=== PATIENT | male | born 1980 | race Caucasian/White ===

== ENCOUNTER 2018-10-23 03:53 | Emergency (ER) | payer MEDICAID, SELFPAY ==
[2018-10-23 03:55] VITALS: BP 134/82; PULSE 104; RESP 18; TEMP 36.2; O2SAT 99; BMI 26.3
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
--- NOTE | 2018-10-23 06:47 | ED.DEP ---
ED Disposition - Plan for ED Patient: Instructions: BACK PAIN (Acute or Chronic), CONTUSION, Upper Extremity, CONTUSION, Lower Extremity Referrals: Malika Haynes [Primary Care Provider] -
== END 2018-10-23 06:58 | disposition home or self-care (01) ==
PROVIDERS: Emergency Provider Emergency Medicine; Family Provider Family Medicine; PCP Family Medicine
DX: M54.5 Low back pain (principal); M25.512 Pain in left shoulder; S80.211A Abrasion, right knee, initial encounter; V09.9XXA Pedestrian injured in unspecified transport accident, initial encounter; Y93.9 Activity, unspecified; Y92.9 Unspecified place or not applicable; Z72.0 Tobacco use
CPT/HCPCS: 71046; 72100; 72170; 73030; 73564; 99284